=== PATIENT | female | born 2000 | race Caucasian/White ===

== ENCOUNTER 2020-06-01 11:15 | Emergency (ER) | payer OTHER ==
[2020-06-01 12:59] LABS: HEMOGLOBIN 13.1 gm/dl (12.3-15.3); RED BLOOD COUNT 4.12 M/UL (4.00-5.10); WHITE BLOOD COUNT 5.5 K/UL (4.5-11.0)
[2020-06-01 13:52] LABS: BUN/CREATININE RATIO 16 (0-10)
[2020-06-01] MEDS ORDERED: CEPHALEXIN500 M1 PO (15:14)
== END 2020-06-01 15:41 | disposition home or self-care (01) ==
LOC: ER1 11:15
PROVIDERS: Physician Assistant
DX: S40.012A Contusion of left shoulder, initial encounter (principal); S70.02XA Contusion of left hip, initial encounter; N39.0 Urinary tract infection, site not specified; R55 Syncope and collapse; W19.XXXA Unspecified fall, initial encounter
CPT/HCPCS: 70450; 73030; 73502; 80053; 80307; 81001; 84703; 85025; 85379; 93005; 99285; J7030

== ENCOUNTER 2021-03-10 12:37 | Emergency (ER) | payer OTHER ==
[~2021-03-10 12:37] MED LIST: CEPHALEXIN500 M1 PO
== END 2021-03-10 14:10 | disposition left against medical advice (07) ==
LOC: ER1 12:37
DX: R42 Dizziness and giddiness (principal); R11.0 Nausea; I95.9 Hypotension, unspecified; F17.290 Nicotine dependence, other tobacco product, uncomplicated
CPT/HCPCS: 99282

== ENCOUNTER → 2021-06-01 | Outpatient (CLI) | payer OTHER | LOC: HEART 5 05-30 15:00 | DX: R00.2 Palpitations (principal); R55 Syncope and collapse | CPT/HCPCS: 93306 ==